=== PATIENT | female | born 1990 | race Hispanic/Latino ===

== ENCOUNTER 2017-10-07 23:30 | Day surgery (SDC) | payer MEDICAID, OTHER ==
[2017-10-08 00:04] VITALS: BP 120/71; TEMP 98.8; BMI 26.7
[2017-10-08 00:33] LABS: Amnisure Internal Control QC ACCEPTABLE (ACCEPTABLE); Amnisure Test No Membranes Rupture (No Rupture)
--- NOTE | 2017-10-08 07:23 | ER ---
DATE OF ENCOUNTER: 10/07/2017 PRIMARY INJECTION MOLDER: Dr. Herve Gregorio. CHIEF COMPLAINT: Leakage of fluid. HISTORY OF PRESENT ILLNESS: The patient is a 27-year-old, , female with an intrauterine pregnan cy at 29 weeks and 2 days, who presented to Labor and Delivery after having some leakage of fluid at home. The patient was concerned that maybe she had ruptured her membranes and came in for evaluation . The patient denies any persistent leakage of fluid, any uterine contractions, or vaginal bleeding. The patient denies any fever, fall, headache, chest pain, shortness of breath, nausea, vomiting, di arrhea, constipation, any new rashes, hip problems, knee problems, back problems, muscle weakness, va ginal bleeding, urinary urgency or frequency. The patient does report that she was diagnosed with a strep throat a few weeks back and had been placed on antibiotics. PAST MEDICAL HISTORY: Negative. PAST SURGICAL HISTORY: Two previous C-sections. SOCIAL HISTORY: Denies drug, alcohol, or tobacco use. ALLERGIES: No known drug allergies. MEDICATIONS: vitamins. OB LABS: Unavailable at time of dictation. REVIEW OF SYSTEMS: Per HPI. PHYSICAL EXAMINATION: VITAL SIGNS: Blood pressure is 120/71, heart rate of 93, respiratory rate of 18, satting 97% on room air, temperature 98.8. GENERAL: She appears to be in no acute distress. She is alert and oriented and cooperative and plea carlita to interact with. HEAD: Normocephalic, atraumatic. LUNGS: Clear to auscultation bilaterally. HEART: Regular rate and rhythm. ABDOMEN: Soft, gravid, nontender. EXTREMITIES: Nontender and nonedematous. GENITOURINARY EXAM: Negative or has not been performed. heart tracing for leakage of fluid demonstrates a baseline in the 140s with moderate long-term variability, positive accelerations, no decelerations. AmniSure test was negative. [employer]MENT MACHINIST-3 was collected and results are pending. ASSESSMENT AND PLAN: The patient is a 27-year-old female, who had some isolated leakage of fluid and no evidence of rupture of membranes. Fetus has a reactive NST and [employer]MENT MACHINIST-3 results are pending. The pa abelardo is being discharged to home with instructions to follow up with her primary OB as scheduled.
--- NOTE | 2017-10-08 09:28 | PDOC.EVN ---
Event Note - Event Note Event Note: Post discharge note Assumed care this AM and told to follow up on lab check. Patient with BV. I called her at [phone] and discussed results. MERE LLAMAS for flagyl oral Called flagyl 500mg po BID x 7 days to [facility] pharmacy on [id number]
--- NOTE | 2017-10-08 16:47 | PDOC.EVN ---
Event Note - Event Note Event Note: Pharmacy call @ [phone]: Vane called in to pharmacy at number [phone]
== END 2017-10-08 01:10 | disposition home or self-care (01) ==
LOC: L&D/OP 23:30
PROVIDERS: ATTEND Family Medicine
DX: O42.913 Preterm premature rupture of membranes, unspecified as to length of time between rupture and onset of labor, third trimester (principal); Z3A.29 29 weeks gestation of pregnancy; Z98.890 Other specified postprocedural states
CPT/HCPCS: 84112; 87480; 87510; 87660; 99283